=== PATIENT | male | born 1935 | race Caucasian/White ===

== ENCOUNTER 2017-05-06 16:00 | Day surgery (SDC) | payer MEDICARE, OTHER ==
[2017-05-06] VITALS (7 sets, daily range): BP systolic 136–152; BP diastolic 74–79; PULSE 68–96; TEMP 97.5–97.6
[~2017-05-06] VITALS: Ht 172.7 cm; Wt 97.8 kg
[2017-05-06] MEDS ORDERED: NORVASC 5MG5 MG/TAB PO (16:39)
[2017-05-06] MEDS ORDERED: ZOCOR 20MG20 MG PO (16:39)
[2017-05-06] MEDS ORDERED: HYTRIN 5MG C5 MG/CAP PO (16:39)
[2017-05-06] MEDS ORDERED: VISION VITAMINS1 TA1 PO (16:40)
[2017-05-06] MEDS ORDERED: PULMICORT0.5 MG/2 M IH (16:46)
[2017-05-06] MEDS ORDERED: ALBUTEROL0.83 MG/ML IH (16:46)
== END 2017-05-06 21:30 | disposition home or self-care (01) ==
LOC: SDCO 16:00 → SURG 20:00 → SDCO 21:30
DX: S62.620B Displaced fracture of middle phalanx of right index finger, initial encounter for open fracture (principal); S61.211A Laceration without foreign body of left index finger without damage to nail, initial encounter; S61.012A Laceration without foreign body of left thumb without damage to nail, initial encounter; J40 Bronchitis, not specified as acute or chronic; I10 Essential (primary) hypertension; G47.33 Obstructive sleep apnea (adult) (pediatric); H35.30 Unspecified macular degeneration; Z96.653 Presence of artificial knee joint, bilateral; Z90.49 Acquired absence of other specified parts of digestive tract; Z95.0 Presence of cardiac pacemaker; W27.8XXA Contact with other nonpowered hand tool, initial encounter
CPT/HCPCS: OP; J0690; J1885; J2270; J2405; J2704; J7120